=== PATIENT | female | born 1965 | race Caucasian/White ===

== ENCOUNTER 2017-07-04 04:26 | Observation (INO) | payer OTHER, SELFPAY ==
[2017-07-04] VITALS (14 sets, daily range): BP systolic 104–176; BP diastolic 67–87; PULSE 53–79; RESP 14–20; TEMP 36.2–37; O2SAT 94–100; BMI 25.0
--- NOTE | 2017-07-04 | PATH_ITS ---
[facility] Accession Number: [id number] . 01 Material submitted: . GALLBLADDER . 02 Diagnosis: Gallbladder: Cholelithiasis with associated chronic cholecystitis. MRV/07/08/2017 . 02 Electronically signed: . Juan Nance MD, Pathologist NPI- [id number] . 01 Gross description: . The specimen is received in a container of formalin, labeled with the patient's name, designated gallbladder. The specimen consists of a focally incised partially drained gallbladder measuring 6.5 x 3 x 3 cm. The gallbladder contains a small amount of pale yellow-green fluid and several 0.4-0.9 cm yellow pale green mulberry calculi. The mucosal surface is pale green, slightly irregular with possible rare faint yellow flecks scattered throughout. The wall measures less than 0.5 cm. The serosal surface is glistening pink-spicer, covered with a minimal amount of fat. The 0.7 cm segment of cystic duct is ligated. The duct is dilated and impacted with two 0.5 cm yellow-morales mulberry calculi. Director Of Clinical Trials sections submitted in cassette A1. ([id number]) . /MRV . 02 Pathologist provided ICD-10: K80.64 . 02 CPT . 306028 Performed at: 01 [facility] [address], [place], [place] [id number] MD Denzel Thompson MD Phone: [phone] Performed at: 02 [facility] [address] [place], [place] [id number] MD Stephan Gar MD Phone: [phone]
--- NOTE | 2017-07-04 04:36 | DI.US.S_ITS ---
PROCEDURE: US ABDOMEN COMPLETE INDICATIONS: severe RUQ pain TECHNIQUE: Real-time scanning was performed of the abdominal and retroperitoneal organs, with image documentation. COMPARISON: None. FINDINGS: Liver: Liver is normal in size and homogeneous in echotexture. Gallbladder: The gallbladder appears abnormal, with several approximately 8mm mobile gallstones within the gallbladder lumen the gallbladder wall is abnormally thickened measuring up to 6.4 mm. There is a small amount of adjacent pericholecystic free fluid and also mild focal tenderness during sonographic palpation exactly over the gallbladder. Biliary ducts: Intrahepatic bile ducts are non-dilated. Extrahepatic bile duct caliber measures 6.2 mm. Normal is 6-7 mm or less in diameter, or 10 mm or less post-cholecystectomy. Pancreas: Visualized portions of the pancreas are sonographically normal. Spleen: Spleen is normal in size and homogeneous in echotexture. Kidneys: Kidneys are normal in size and echotexture. Right kidney measures 9.5 cm long; left kidney measures 10.6 cm long. No hydronephrosis or nephrolithiasis. No solid masses. Aorta: Visualized aorta is normal in caliber at less than 3 cm. Iliacs: Proximal common iliac arteries are normal in caliber at less than 2.5 cm. IVC: Intrahepatic inferior vena cava is patent. Miscellaneous: No free abdominal fluid. IMPRESSION: Acute cholecystitis, intrahepatic and extrahepatic biliary distention is not found. Gallstones within the gallbladder lumen are identified of the stones visualized are mobile at this time. Dictated by: uSdarshan Dobson M.D. on 07/04/2017 at 8:17 Approved by: Sudarshan Dobson M.D. on 07/04/2017 at 8:19
--- NOTE | 2017-07-04 04:43 | ED.ABDPAIN ---
HPI - Abdominal Pain General Chief Complaint: Abdominal Pain Stated Complaint: Abdominal Pain Time Seen by Provider: 07/04/17 04:35 Source: patient and family Mode of arrival: ambulatory Limitations: no limitations History of Present Illness HPI narrative: Patient presents to the emergency department this morning with her in the chief complaint of gradually worsening epigastric and right upper quadrant pain since about 9:00 p.m.. She denies provocation, palliation or radiation. She has some associated symptoms such as nausea and decreased appetite but no vomiting, fever or chills. She denies chest pain or shortness of breath. She is not dizzy nor weak or lightheaded. She denies recent alcohol abuse. She has had a few episodes in the past similar to this but not as long. Patient's last solid food was yesterday at about 1:00 p.m. with pizza for lunch. She has been drinking clear liquids throughout the course of the night but states that has been water only, and small slips MD complaint: abdominal pain Onset (ago): hour(s) Pain Consistency: constant Location: RUQ and epigastric Severity: moderate Quality: cramping and aching Radiation: none Migration to: no migration Relieving factors: nothing Exacerbating factors: nothing Associated symptoms: nausea Related Data Previous Rx's Medication Instructions Recorded indomethacin 0 PO Q8HP PRN #30 cap 01/08/16 norethindrone ac-eth estradiol 1 tab PO Q DAY #3 pac 10/21/16 [Loestrin 1.5/30 (21)] phenazopyridine [Pyridium] 0 PO TID #9 tab 03/31/17 sulfamethoxazole-trimethoprim 0 PO BID #14 tab 03/31/17 Allergies Allergy/AdvReac Type Severity Reaction Status Date / Time No Known Drug Allergies Allergy Verified 07/04/17 04:41 PFSH Surgical History History of third molar tooth extraction Family History Father Age: 88 Heart disease Hypertension High cholesterol Grandmother Diabetes mellitus Sister Age: 50 Heart disease Social History Smoking Status: Never smoker Exam Narrative Exam Narrative: Pleasant 52-year-old female is clearly uncomfortable. Initial Vital Signs Initial Vital Signs: Vital Signs Temperature 98.2 F 07/04/17 04:37 Pulse Rate 74 07/04/17 04:37 Respiratory Rate 16 07/04/17 04:37 Blood Pressure 176/72 H 07/04/17 04:37 Pulse Oximetry 100 07/04/17 04:37 Const General: cooperative and well developed Nutritional Appearance: well nourished Orientation: alert, awake, oriented x3 and not confused [facility] Head: normocephalic and atraumatic Ears: external ears normal and TM's normal bilaterally Nose: external nose normal and No nasal discharge Face and sinus: sinuses nontender, face symmetric, no sinus tenderness and No dry mucous membranes Mouth: oral mucosae normal and moist mucous membranes Teeth and gingiva: dentition normal Throat: tonsils normal and uvula midline Eyes General: appearance normal, both eyes and all related structures Eyelids: eyelids normal Conjunctivae: conjunctivae normal Sclera: sclerae normal Pupils: PERRL EOM: EOM intact bilaterally Resp Effort & Inspection: normal respiratory effort, able to speak in complete sentences, no respiratory distress and no use of accessory muscles Auscultation: clear to auscultation bilaterally, no rales, no rhonchi and no wheezes GI Inspection: non-distended Palpation: soft, no hepatosplenomegaly, guarding, No pulsatile mass and tender (Right upper quadrant with positive Camacho sign) Auscultation: normal bowel sounds Skin General: no rashes or lesions noted, No jaundice and No petechiae Neuro General: alert, awake, oriented x3 and gait normal Speech: speech normal Extrem General: full ROM, no clubbing, cyanosis or edema, no pedal edema and no calf tenderness Course Orders Ordered: ED Orders 07/04/17 04:36 US abdomen complete Stat EKG-12 Lead Stat 07/04/17 05:45 Complete Blood Count AUTO DIFF Stat Comprehensive Metabolic Panel Stat Lipase Stat Troponin I Stat Hydromorphone HCl (Dilaudid) 1 mg SUBCUT NOW PRN PRN Reason: Pain, Severe Last Admin: 07/04/17 05:53 Dose: 1 mg Sodium Chloride (Normal Saline 0.9%) 1,000 mls @ 150 mls/hr IV CONT NINOSKA Discontinued Medications Hydromorphone HCl (Dilaudid) 0.5 mg IV NOW ONE Stop: 07/04/17 05:09 Last Admin: 07/04/17 06:22 Dose: Not Given Ondansetron HCl (Zofran) 4 mg IV NOW ONE Stop: 07/04/17 05:09 Last Admin: 07/04/17 06:22 Dose: Not Given Ondansetron HCl (Zofran Odt) 4 mg PO NOW ONE Stop: 07/04/17 05:46 Last Admin: 07/04/17 05:49 Dose: 4 mg Reevaluation(s) Reevaluation #1: patient feeling better after Dilaudid and Zofran Consultations Consultation #1: Dr. Barrera is happy to accept this patient on his service. She will go to OR after the 0900 case this morning is completed Time: 05:26 Consultation #2: Dr. Jiang (Anesthesia) consulted regarding placement of US guided peripheral line prior to OR. She is historically a very difficult IV start and both of our ED nurses were unsuccessful. He will be here at about 0715 to do preop check / HP / and place line. Time: 05:33 Vital Signs - 8 hr 07/04/17 04:37 07/04/17 06:03 Temperature 98.2 F Pulse Rate 74 63 Respiratory Rate 16 18 Blood Pressure 176/72 H Blood Pressure [Right Arm] 148/77 H Pulse Oximetry 100 100 MDM - Abdominal Pain Differential Diagnosis Differential diagnosis: Likely abdominal pain, calculus of kidney, constipation, gastroenteritis, pancreatitis and small bowel obstruction Medical Records Attestation: I reviewed the patient's medical records. Lab Data Attestation: I reviewed the patient's lab results. Result diagrams: 07/04/17 05:45 07/04/17 05:45 Lab Results 07/04/17 07/04/17 07/04/17 Range/Units 05:45 05:45 05:45 WBC 10.5 (4.5-11.0) X10^3/uL RBC 4.41 (4.0-5.2) X10^6/uL Hgb 14.0 (12.0-16.0) g/dL Hct 41.0 (36-46) % MCV 93.0 (80-100) fL MCH 31.7 (26-34) PG MCHC 34.1 (30-36) % RDW 13.0 (11.6-14.8) % Plt Count 286 (150-400) X10^3/uL Neut % (Auto) 83.3 H (50-75) % Lymph % (Auto) 13.1 L (25-40) % [place] % (Auto) 3.3 (3-14) % Eos % (Auto) 0.1 L (2-4) % Baso % (Auto) 0.2 (0-2) % Neut # (Auto) 8800 H (5755-1209) /uL Sodium 137 (137-145) mmol/L Potassium 4.1 (3.4-5.1) mmol/L Chloride 102.0 (98-107) mmol/L Carbon Dioxide 20.0 L (22-32) mmol/L BUN 10.0 (7-17) mg/dL Creatinine 0.70 (0.52-1.04) mg/dL Estimated GFR > 60.0 (>60) mL/min BUN/Creatinine Ratio 14.3 (6-22) Glucose 106 H (70-100) mg/dL Calcium 9.2 (8.4-10.2) mg/dL Total Bilirubin 0.7 (0.2-1.3) mg/dL AST 25 (14-36) IU/L ALT 28 (9-52) IU/L Alkaline Phosphatase 43 (38-126) U/L Troponin I < 0.012 (0.01-0.034) ng/mL Total Protein 7.5 (6.3-8.2) g/dL Albumin 4.3 (3.5-5.0) g/dL Globulin 3.2 (1.7-4.1) g/dL Albumin/Globulin Ratio 1.3 (1.0-2.8) Lipase 60 (23-300) U/L Imaging Data US - abdomen: Radiologist's impression: Gallstones with gallbladder wall thickening, signs consistent with acute cholecystitis ECG Data Attestation: I personally reviewed and interpreted this ECG as follows: Prior ECG tracings: not available for review Interpretation: Normal sinus rhythm at 66 beats per minutes. No ectopy. No ST segmental elevation or depression, no significant T-wave abnormalities. Discharge Plan Departure Patient Disposition: Admitted As Inpatient Clinical Impression: Acute cholecystitis
--- NOTE | 2017-07-04 05:31 | PC.NURSE ---
IV start attempted x 4 by 2 RN's with no success. US at bedside. Dr Alvarez aware. Lab phoned for draw.
[2017-07-04] MEDS: ONDANSETRON 4 MG ODT PO (05:49)
[2017-07-04] MEDS: HYDROMORPHONE 2 MG INJ 1 MG SUBCUT (05:53)
[2017-07-04 05:54] LABS: Add Manual Diff / Slide Review NO; Basophils Percent Auto 0.2 % (0-2); Eosinophils Percent Auto 0.1 % (2-4); Lymphocytes Percent Auto 13.1 % (25-40); Mean Corpuscular HGB Conc 34.1 % (30-36); Mean Corpuscular Hemoglobin 31.7 PG (26-34); Monocytes Percent Auto 3.3 % (3-14); Neutrophils Absolute Auto 8800 /uL (3000-5900); Neutrophils Percent Auto 83.3 % (50-75); Platelet Count 286 X10^3/uL (150-400); Red Blood Cell Count 4.41 X10^6/uL (4.0-5.2); White Blood Cell Count 10.5 X10^3/uL (4.5-11.0)
[2017-07-04 06:03] LABS: Alanine Aminotransferase 28 IU/L (9-52); Albumin 4.3 g/dL (3.5-5.0); Albumin Globulin Ratio 1.3 (1.0-2.8); Alkaline Phosphatase 43 U/L (38-126); Aspartate Aminotransferase 25 IU/L (14-36); BUN Creatinine Ratio 14.3 (6-22); Bilirubin Total 0.7 mg/dL (0.2-1.3); Calcium 9.2 mg/dL (8.4-10.2); Estimated Glomerular Filt Rate > 60.0 mL/min (>60); Globulin 3.2 g/dL (1.7-4.1); Glucose 106 mg/dL (70-100); HEMOLYSIS 19 (0-50); Lipase 60 U/L (23-300); Potassium 4.1 mmol/L (3.4-5.1); Sodium 137 mmol/L (137-145); Total Protein 7.5 g/dL (6.3-8.2)
[2017-07-04 06:25] LABS: Troponin I < 0.012 ng/mL (0.01-0.034)
[2017-07-04] MEDS: SODIUM CHLORIDE 0.9% 1,000 ML 150 ML IV (07:23)
--- NOTE | 2017-07-04 07:35 | PC.NURSE ---
PIV placed by anesthsia with US guidance
--- NOTE | 2017-07-04 09:06 | PM.HP.1 ---
History of Present Illness Chief complaint: Abdominal Pain Narrative: Padmini Yates is a 52 year old female The patient is a healthy 52-year-old woman. She has been having intermittent minor abdominal pain that basically would go away after about an hour. It was not accompanied by nausea or vomiting of and the patient had no obvious precipitating cause. However yesterday she developed severe upper abdominal pain right upper quadrant pain accompanied by nausea. She was seen in the emergency room and brought in for removal of an inflamed gallbladder based on the findings. She has no other GI complaints and has not been taking any medication but control regularly. Patient History Surgical History History of third molar tooth extraction Family & Social History Family History: Reviewed 07/04/17 by Bernardino Barrera MD Tobacco & Substance use: Smoking Status Never smoker alcohol intake frequency a few times a month Meds Home Medications Medication Instructions Recorded Confirmed Type norethindrone ac-eth estradiol 1 tab PO Q DAY #3 pac 10/21/16 07/04/17 Rx [Loestrin 1.5/30 (21)] Allergies Allergy/AdvReac Type Severity Reaction Status Date / Time No Known Drug Allergies Allergy Verified 07/04/17 04:41 Review of Systems Review of Systems Patient denies any double vision pain arise earache sore throat trouble swallowing. No tooth aches. No cough cold or asthma. No chest pain heart murmurs or unusual shortness of breath. Denies any black or bloody bowel movements. Had a colonoscopy that was normal recently. Is up-to-date on her mammograms. No seizures blackouts. No history kidney stones or blood in her urine. No seizures or blackouts. No psychiatric illnesses. All systems reviewed & are unremarkable except as noted in HPI and below Exam Vital Signs (past 8 hours): Vital Signs - 8 hr 07/04/17 04:37 07/04/17 06:03 07/04/17 07:35 Temperature 98.2 F Pulse Rate 74 63 53 L Respiratory Rate 16 18 17 Blood Pressure 176/72 H 136/85 H Blood Pressure [Right Arm] 148/77 H Pulse Oximetry 100 100 97 Pulse Oximetry 97 Oxygen Delivery Method Room Air Narrative Exam Narrative: Operative pleasant woman in no apparent distress. Her eyes are nonicteric. Nasal septum is midline. Ears without lesion. Oral mucosa is pink moist without open lesion. Teeth are intact. No splits or swelling of her lips. There are no nodes in the neck or supraclavicular areas. Trachea is midline and mobile. I do not appreciate any masses in the neck or thyroid. Her lungs are clear to auscultation without rales or rhonchi. Heart regular rate and rhythm no murmur gallop no bruit in the neck. She has 2+ tibialis posterior pulses. Patient is abdomen is scaphoid soft nontender there are no masses liver and spleen are not enlarged. No obvious ventral hernias. Patient normal adult hair pattern. She shaves her legs. No open lesions on the visualized skin but she does have a discolored freckle on the dorsum of her right foot (she says has been evaluated by a software reverse engineer, and has been present for many years.) She is alert and orient x3. Speech rate and content are appropriate. Objective Imaging US - abdomen: My impression: Thickened gallbladder wall with stones. Normal duct. Radiologist's impression: Acute cholecystitis with cholelithiasis Labs Result Diagrams: 07/04/17 05:45 07/04/17 05:45 Labs: Laboratory Results - last 24 hr 07/04/17 07/04/17 07/04/17 05:45 05:45 05:45 WBC 10.5 RBC 4.41 Hgb 14.0 Hct 41.0 MCV 93.0 MCH 31.7 MCHC 34.1 RDW 13.0 Plt Count 286 Neut % (Auto) 83.3 H Lymph % (Auto) 13.1 L [place] % (Auto) 3.3 Eos % (Auto) 0.1 L Baso % (Auto) 0.2 Neut # (Auto) 8800 H Sodium 137 Potassium 4.1 Chloride 102.0 Carbon Dioxide 20.0 L BUN 10.0 Creatinine 0.70 Estimated GFR > 60.0 BUN/Creatinine Ratio 14.3 Glucose 106 H Calcium 9.2 Total Bilirubin 0.7 AST 25 ALT 28 Alkaline Phosphatase 43 Troponin I < 0.012 Total Protein 7.5 Albumin 4.3 Globulin 3.2 Albumin/Globulin Ratio 1.3 Lipase 60 Assessment & Plan Plan: Plan: Healthy 52-year-old woman with acute cholecystitis with cholelithiasis based on symptoms and ultrasound. I have discussed laparoscopic cholecystectomy with possible intraoperative cholangiogram with her. Risks of bleeding, infection, injury to internal organs ducts which may require major operation, bile leakage and hernia were all discussed with her. The potential for an ERCP was discussed. She appears to understand and wishes to proceed.
--- NOTE | 2017-07-04 09:27 | PM.PREOP ---
Pre-operative Note Interval Note Pre-op Check: History & Physical exam performed today H&P completed within 30 days and has changed as indicated here:: None
[2017-07-04] MEDS: HYDROMORPHONE 2 MG INJ 1 MG IV (09:33)
[2017-07-04 10:14] LABS: Pregnancy Test Serum,Qual Negative (Negative)
--- NOTE | 2017-07-04 11:20 | PC.NURSE ---
patient picked up by usability engineer. Consent signed.
[2017-07-04] MEDS: LACTATED RINGERS 1,000 ML 42 ML IV (11:35)
[2017-07-04] MEDS: CEFAZOLIN 2 GM/100 ML FROZ.PIGGY IV (11:55)
[2017-07-04] MEDS: BUPIVACAINE 0.5% (PF) 30 ML VIAL INJ (12:53)
--- NOTE | 2017-07-05 02:40 | P.OP_ITS ---
Operative Date/Time/Diagnoses - Date of procedure: 07/04/17 Time of procedure: 13:33 Pre-op diagnosis: cholelithiasis, acute cholecystitis Post-op diagnosis: same Procedure & Clinicians Procedure: Laparoscopic cholecystectomy Same procedure as scheduled: Yes Indications: Severe upper abdominal pain with an abnormal ultrasound showing gallstones, gallbladder wall thickening and pericholecystic fluid. Surgeon: Bernardino Barrera Click Yes if Unassisted: Yes Anesthesia Type: General Operative Notes Findings: Edematous gallbladder wall with omentum adherent to the wall. Multiple stones. Normal-appearing ductal system. Closure Type: primary Implants & Drains: None Estimated Blood Loss (mL): 10 Procedure in detail: The patient was placed supine on the operating room table and underwent general endotracheal anesthesia. There prepped and draped in the usual fashion. Local anesthetic was infiltrated beneath the umbilicus and an incision made in the infraumbilical fold. It was carried down to the level of the peritoneum which was opened under direct vision. Stay sutures of 0 Polysorb were placed in the fascia. An Childs cannula was inserted and the abdomen was insufflated. The patient was repositioned and local anesthetic was infiltrated again beneath the right costal margin and 3 small 5 mm ports were inserted. The gallbladder was identified and grasped and elevated. It was encased in omentum. This was quite edematous. The omentum was taken down with blunt dissection and cautery. The end of the gallbladder was identified. Dissection was begun here. The tissues were somewhat thickened and so anything that appeared that it might be vascular had clips were placed across the before was divided. A ductal structure that was singular nature was isolated from surrounding structures. It was normal in caliber. Clips were placed across it was divided leaving 2 in the patient. There was a large artery visible were sending a branch to the gallbladder. I carefully preserved the large branch that appeared to be going to the liver and placed 3 clips across the branch going to the gallbladder and divided it leaving 2 in the patient. The gone over was then dissected from its bed in the liver. It was ultimately detached and placed in a bag and removed without difficulty through the umbilical port. The right upper quadrant was irrigated and suctioned free of fluid. Meticulous hemostasis was achieved. The ports were all removed. The wounds were irrigated with saline. The stay sutures at the umbilicus were tied. A 2 0 Maxon suture was placed between the two stay sutures of 0 Polysorb was which had been tied. The wounds were all closed with 4 0 Polysorb subcuticular sutures and Steri- Strips. Band-aids were applied and the patient was awakened extubated and taken to recovery area in good condition. Complications: none Condition: stable Disposition: PACU Plan for aftercare: Probable discharge later today and follow up in the office
== END 2017-07-04 18:15 | disposition home or self-care (01) ==
LOC: ED 06:29 → AC 14:10
PROVIDERS: Admitting Provider Specialist; Emergency Provider Emergency Medicine; Family Provider Internal Medicine; PCP Internal Medicine; Visit Provider Specialist
PROC: 0FT44ZZ Resection of Gallbladder, Percutaneous Endoscopic Approach (ICD-10-PCS; CPT 47562; principal; 2017-07-04 11:00)
DX: K80.10 Calculus of gallbladder with chronic cholecystitis without obstruction (principal)
CPT/HCPCS: 47562; 36415; 76700; 80053; 83690; 84484; 84703; 85025; 93005; 96361; 96372; 96374; 96375; 99283; 99285; G0378; J0131; J0690; J1100; J1170; J1885; J2250; J2405; J2704; J3010

== ENCOUNTER → 2017-07-27 16:16 | Outpatient (CLI) | payer OTHER, SELFPAY ==
[2017-07-04 08:48] VITALS: BMI 25.0
--- NOTE | 2017-07-27 16:18 | DI.US.S_ITS ---
ULTRASOUND OF LEFT BREAST: 07/27/2017 CLINICAL: 6 month follow-up of cysts. Comparison is made to exams dated: 01/06/2017 ultrasound, 10/06/2016 ultrasound, 10/06/2016 mammogram, and 09/30/2016 mammogram - [facility]. Color flow and real-time ultrasound of the left breast were performed on the areas of interest. There is a stable 0.5 cm x 0.5 cm x 0.5 cm round complex cyst in the left breast at 4 o'clock middle depth. This round complex cyst is hypoechoic with internal echoes. Color flow imaging demonstrates that there is no vascularity present. IMPRESSION: PROBABLY BENIGN - FOLLOW-UP RECOMMENDED The stable 0.5 cm x 0.5 cm x 0.5 cm round complex cyst in the left breast likely represents a complex cyst and is probably benign. A follow-up ultrasound in 12 months is recommended to demonstrate 2 year stability. This exam was interpreted at Station ID: [id number]. Electronically Signed By: Denzel hou/:07/27/2017 17:13:13 letter sent: Followup Recommended Ultrasound BI-RADS: 3 Probably benign
== END ==
PROVIDERS: Family Provider Internal Medicine; PCP Internal Medicine
DX: R92.8 Other abnormal and inconclusive findings on diagnostic imaging of breast (principal); N60.02 Solitary cyst of left breast
CPT/HCPCS: 76642

== ENCOUNTER → 2017-10-07 15:22 | Outpatient (CLI) | payer OTHER, SELFPAY ==
[2017-07-04 08:48] VITALS: BMI 25.0
--- NOTE | 2017-10-07 15:24 | DI.MG.S_ITS ---
BILATERAL DIGITAL SCREENING MAMMOGRAM 3D/2D WITH CAD: 10/07/2017 Comparison is made to exams dated: 10/06/2016 mammogram, 09/30/2016 mammogram, and 03/15/2015 mammogram - [facility]. There are scattered fibroglandular elements in both breasts. Current study was also evaluated with a Computer Aided Detection (CAD) system. There is a focal asymmetry in the left breast at 4 o'clock middle depth. No other significant masses, calcifications, or other findings are seen in either breast. IMPRESSION: INCOMPLETE: NEEDS ADDITIONAL IMAGING EVALUATION The focal asymmetry in the left breast is indeterminate. Additional views with possible ultrasound are recommended. This exam was interpreted at Station ID: [id number]. NOTE: For mammograms, a report in lay terms will be sent to the patient. Approximately 15% of breast malignancies will not be visualized mammographically. In the management of a palpable breast mass, a negative mammogram must not discourage biopsy of a clinically suspicious lesion. Electronically Signed By: Carmelo gallegos/dylon:10/08/2017 12:39:45 copy to: Evelyn Clark letter sent: Additional Imaging Needed ACR BI-RADS Category 0: Incomplete [id number]
== END ==
PROVIDERS: Family Provider Internal Medicine; PCP Internal Medicine
DX: Z12.31 Encounter for screening mammogram for malignant neoplasm of breast (principal)
CPT/HCPCS: 77063; 77067

== ENCOUNTER → 2017-11-02 13:25 | Outpatient (CLI) | payer OTHER, SELFPAY ==
[2017-07-04 08:48] VITALS: BMI 25.0
--- NOTE | 2017-11-02 13:26 | DI.MG.S_ITS ---
UNILATERAL LEFT DIGITAL DIAGNOSTIC MAMMOGRAM 3D/2D WITH ADDITIONAL VIEWS: 11/02/2017 CLINICAL: Additional evaluation requested from prior study. Comparison is made to exams dated: 10/07/2017 mammogram, 10/06/2016 mammogram, 09/30/2016 mammogram, and 03/15/2015 mammogram - [facility]. There are scattered fibroglandular elements in left breast. Previously identified focal asymmetry in the left breast at 4 o'clock middle depth of comparison screening mammograms persists with additional views. This is similar in appearance to comparison mammogram of 10/06/2016. No other significant masses, calcifications, or other findings are seen in the breast. IMPRESSION: INCOMPLETE: NEEDS ADDITIONAL IMAGING EVALUATION Previously identified focal asymmetry in the left breast at 4 o'clock middle depth of comparison screening mammograms persists with additional views, and is similar in appearance to comparison mammogram of 10/06/2016. A targeted ultrasound is recommended for further evaluation, and will be performed immediately following this exam. This exam was interpreted at Station ID: [id number]. NOTE: For mammograms, a report in lay terms will be sent to the patient. Approximately 15% of breast malignancies will not be visualized mammographically. In the management of a palpable breast mass, a negative mammogram must not discourage biopsy of a clinically suspicious lesion. Electronically Signed By: Gordo Renner M.D. ecl/:11/02/2017 16:23:29 copy to: Evelyn Clark letter sent: Additional Imaging Needed ACR BI-RADS Category 0: Incomplete [id number]
--- NOTE | 2017-11-02 13:26 | DI.US.S_ITS ---
LIMITED ULTRASOUND OF LEFT BREAST: 11/02/2017 CLINICAL: Patient returns today to evaluate a density in the left breast. Comparison is made to exams dated: 11/02/2017 mammogram, 10/07/2017 mammogram, 07/27/2017 ultrasound, 01/06/2017 ultrasound, 10/06/2016 ultrasound, and 10/06/2016 mammogram - [facility]. Real-time and Doppler ultrasound of the left breast 3-4 o'clock region were performed. Avila scale images of the real-time examination were reviewed. There is a 0.5 cm x 0.4 cm x 0.4 cm oval cyst with a smooth internal wall in the left breast at 3:30 o'clock middle depth 4 cm from the nipple. This oval cyst is anechoic with posterior acoustic enhancement. This correlates with mammography findings. Color flow imaging demonstrates that there is no vascularity present. This cyst is stable in appearance to multiple prior ultrasound exams and is unchanged in size from 10/06/2016 where it measured 0.5 cm x 0.4 cm x 0.4 cm. IMPRESSION: PROBABLY BENIGN The 0.5 cm x 0.4 cm x 0.4 cm oval cyst in the left breast at 3:30 position 4 cm from the nipple is probably benign. This represents at least 1 year of stability. A follow-up ultrasound in 6 months is recommended to demonstrate continued stability. This exam was interpreted at Station ID: [id number]. Electronically Signed By: Gordo Renner M.D. ecl/:11/02/2017 19:27:55 copy to: Evelyn Clark letter sent: Followup Recommended Ultrasound BI-RADS: 3 Probably benign
== END ==
PROVIDERS: PCP Internal Medicine
DX: R92.8 Other abnormal and inconclusive findings on diagnostic imaging of breast (principal); N60.02 Solitary cyst of left breast
CPT/HCPCS: 76642; 77065; G0279

== ENCOUNTER → 2018-10-17 12:53 | Outpatient (CLI) | payer OTHER, SELFPAY ==
[2017-07-04 08:48] VITALS: BMI 25.0
--- NOTE | 2018-10-17 12:54 | DI.MG.S_ITS ---
BILATERAL DIGITAL DIAGNOSTIC MAMMOGRAM 3D/2D: 10/17/2018 CLINICAL: Late short term follow up, due bilateral. Comparison is made to exams dated: 11/02/2017 mammogram, 10/07/2017 mammogram, 10/06/2016 mammogram, 09/30/2016 mammogram, and 03/15/2015 mammogram - [facility]. There are scattered fibroglandular elements in both breasts. There is a persistent equal density focal asymmetry in the left breast at 4 o'clock middle depth. This is not significantly changed since 2017 mammograms. No other significant masses, calcifications, or other findings are seen in either breast. IMPRESSION: INCOMPLETE: NEEDS ADDITIONAL IMAGING EVALUATION The stable equal density focal asymmetry in the left breast but remains indeterminate. An ultrasound is recommended for further evaluation and is scheduled to immediately follow this examination. This exam was interpreted at Station ID: [id number]. NOTE: For mammograms, a report in lay terms will be sent to the patient. Approximately 15% of breast malignancies will not be visualized mammographically. In the management of a palpable breast mass, a negative mammogram must not discourage biopsy of a clinically suspicious lesion. Electronically Signed By: Wiliam Mcknight M.D. aty/:10/17/2018 14:54:43 ACR BI-RADS Category 0: Incomplete 3340F
--- NOTE | 2018-10-17 12:54 | DI.US.S_ITS ---
ULTRASOUND OF LEFT BREAST: 10/17/2018 CLINICAL: 6 month follow-up of cyst left breast. Comparison is made to exams dated: 10/17/2018 mammogram, 11/02/2017 ultrasound, 10/07/2017 mammogram, 07/27/2017 ultrasound, 01/06/2017 ultrasound, and 10/06/2016 ultrasound - [facility]. Color flow and real-time ultrasound of the left breast were performed. Avila scale images of the real-time examination were reviewed. There is a persistent 0.5 cm x 0.4 cm x 0.4 cm oval cyst with a smooth internal wall in the left breast at 3:30 o'clock middle depth 4 cm from the nipple. This oval cyst is anechoic with posterior acoustic enhancement. This abnormality is not significantly changed since September 2016 exam, and correlates with mammography findings. Color flow imaging demonstrates that there is no vascularity present. IMPRESSION: BENIGN There is no sonographic evidence of malignancy. The 0.5 cm x 0.4 cm x 0.4 cm oval cyst in the left breast has remained stable for 2 years time and is consistent with a benign complicated cyst. Return to annual mammogram screening schedule is recommended. This exam was interpreted at Station ID: [id number]. Electronically Signed By: Wiliam Mcknight M.D. at/:10/17/2018 14:58:25 letter sent: Normal Exam Ultrasound BI-RADS: 2 Benign
== END ==
PROVIDERS: PCP Internal Medicine
DX: R92.8 Other abnormal and inconclusive findings on diagnostic imaging of breast (principal); N60.02 Solitary cyst of left breast
CPT/HCPCS: 76642; 77066; G0279

== ENCOUNTER → 2019-03-03 15:40 | Outpatient (CLI) | payer OTHER, SELFPAY ==
[2017-07-04 08:48] VITALS: BMI 25.0
== END ==
PROVIDERS: PCP Internal Medicine
DX: Z78.0 Asymptomatic menopausal state (principal)
CPT/HCPCS: 36415; 83001

== ENCOUNTER → 2020-06-05 17:09 | Outpatient (CLI) | payer OTHER, SELFPAY ==
[2017-07-04 08:48] VITALS: BMI 25.0
[2020-06-05 17:58] LABS: HEMOLYSIS 26 (0-50); Potassium 4.1 mmol/L (3.4-5.1)
== END ==
PROVIDERS: PCP Internal Medicine; Referring Provider Internal Medicine; Visit Provider Internal Medicine
DX: R00.2 Palpitations (principal)
CPT/HCPCS: 36415; 83735; 84132

== ENCOUNTER → 2020-06-27 08:08 | Outpatient (CLI) | payer BC, SELFPAY ==
[2017-07-04 08:48] VITALS: BMI 25.0
--- NOTE | 2020-06-27 | DI.ECHO.S_ITS ---
[place] [facility]---------+ [facility] +---------+ : : [address] : : : : [id number] : : : : Phone: [phone]---------+ Echocardiogram Report + + :Name: YOLETTE CONTI Study Date: 06/27/2020 Height: 67 in : :[facility] ReadingLocation: Weight: 155 lb : : Gender: Female BSA: 1.8 m2 : :: 1965 Age: 55 yrs BP: 110/64 mmHg: :Reason For Study: ABNORMALITIES OF HEART RHYTHM : :Ordering Physician: MAURI, : :RUSSEL Performed By: Ailyn Vazquez : :Referring: RUSSEL DOTSON : + + Interpretation Summary 1) Normal left ventricular size, thickness, and systolic function (EF 55-60%). 2) There are no obvious focal wall motion abnormalities noted but poor endocardial definition reduces the sensitivity for the detection of such. 3) Normal right ventricular size and function. 4) No significant valvular abnormalities. 5) No prior Echo available for comparison. Procedure: A two-dimensional transthoracic echocardiogram with color flow and Doppler was performed. The study quality was technically adequate. There is no prior echocardiogram noted for this patient. The patient was in sinus rhythm with heart rates between 63-78 bpm during the exam. Left Ventricle: The left ventricle is normal in size and wall thickness. The ejection fraction is estimated to be 55-60%. Left ventricular systolic function is normal. There are no obvious focal wall motion abnormalities noted but poor endocardial definition reduces the sensitivity for the detection of such. Diastolic parameters suggest probable normal left ventricular diastolic function and normal filling pressures. Right Ventricle: The right ventricle is normal in size and function. Atria: The left atrium is moderately dilated. Right atrial size is normal. The interatiral septum is thin and hypermobile. There is no Doppler evidence for an interatrial shunt. Mitral Valve: The mitral valve is normal in structure and function. There is trace mitral regurgitation. Aortic Valve: The aortic valve is trileaflet. The aortic valve opens well. There is no aortic valve stenosis. No aortic regurgitation is present. Tricuspid Valve: The tricuspid valve is normal in structure and function. No tricuspid regurgitation. Pulmonary artery pressures cannot be estimated because of the lack of a measurable TR jet velocity but the IVC suggests a CVP of around 3 mmHg. Pulmonic Valve: The pulmonic valve is not well visualized. There is trace pulmonic regurgitation. Great Vessels: The aortic root is normal size. The dimensions of the ascending aorta are normal. The IVC is of normal diameter and collapses greater than 50% with a sniff. This suggests a low right atrial pressure of 3 mm Hg. Pericardium/ Pleura There is no pericardial effusion. There is no pleural effusion. MMode/2D Measurements & Calculations LVIDd: 4.3 cm LVOT diam: 2.1 cm LVIDs: 3.2 cm Ao root diam: 3.2 cm FS: 27.0 % asc Aorta Diam: 3.0 cm EPSS: 0.83 cm Ao Arch Diam (Prox Trans): 2.6 cm IVSd: 0.66 cm LVPWd: 0.75 cm LV ibarra. diameter/BSA (cm/m^2): 2.4 LV sys. diameter/BSA (cm/m^2): 1.7 LA A2 area: 21.4 cm2 RA long axis: 4.5 cm LA A4 area: 17.0 cm2 RA area: 10.9 cm2 LA length (vol): 4.7 cm RA vol: 22.3 ml LA vol: 65.2 ml RA : 12.3 ml/m2 LA vol index: 35.9 ml/m2 IVC diam: 1.3 cm RVD1 (basal): 2.7 cm TAPSE: 1.7 cm Doppler Measurements & Calculations Ao V2 max: 86.3 cm/sec LVOT Max Keo: 66.7 cm/sec Ao V2 mean: 62.0 cm/sec LV V1 max P.8 mmHg Ao max P.0 mmHg LV V1 VTI: 14.0 cm Ao mean P.7 mmHg ROBYN(I,D): 2.6 cm2 Ao V2 VTI: 19.1 cm ROBYN(V,D): 2.7 cm2 sev ratio: 0.73 ROBYN indexed to BSA (cm^2/m^2): 1.4 MV E max keo: 55.4 cm/sec PA pr(Accel): 22.5 mmHg MV A max keo: 57.6 cm/sec MV E/A: 0.96 Med Peak E' Keo: 6.2 cm/sec E/E' med: 9.0 Lat Peak E' Keo: 8.0 cm/sec E/E' lat: 6.9 E/e' average: 8.0 MV dec time: 0.19 sec SV(LVOT): 49.5 ml Reading Physician:11:13 AM
== END ==
PROVIDERS: PCP Internal Medicine; Referring Provider Internal Medicine Cardiovascular Disease; Visit Provider Internal Medicine
DX: R00.8 Other abnormalities of heart beat (principal); R00.2 Palpitations
CPT/HCPCS: 93306

== ENCOUNTER → 2020-10-16 17:30 | Outpatient (CLI) | payer BC, SELFPAY ==
[2017-07-04 08:48] VITALS: BMI 25.0
--- NOTE | 2020-10-16 17:31 | DI.MG.S_ITS ---
BILATERAL DIGITAL SCREENING MAMMOGRAM 3D/2D WITH CAD: 10/16/2020 CLINICAL: Routine screening. Comparison is made to exams dated: 10/17/2018 ultrasound, 10/17/2018 mammogram, 11/02/2017 mammogram, and 10/07/2017 mammogram - [facility]. There are scattered fibroglandular elements in both breasts. Current study was also evaluated with a Computer Aided Detection (CAD) system. No significant masses, calcifications, or other findings are seen in either breast. There has been no significant interval change. IMPRESSION: NEGATIVE There is no mammographic evidence of malignancy. A 1 year screening mammogram is recommended. This exam was interpreted at Station ID: [id number]. NOTE: For mammograms, a report in lay terms will be sent to the patient. Approximately 15% of breast malignancies will not be visualized mammographically. In the management of a palpable breast mass, a negative mammogram must not discourage biopsy of a clinically suspicious lesion. Electronically Signed By: Denzel hou/dylon:10/17/2020 08:01:16 letter sent: Normal Exam ACR BI-RADS Category 1: Negative 3341F
== END ==
PROVIDERS: PCP Internal Medicine; Referring Provider Internal Medicine; Visit Provider Internal Medicine
DX: Z12.31 Encounter for screening mammogram for malignant neoplasm of breast (principal)
CPT/HCPCS: 77063; 77067

== ENCOUNTER → 2021-02-26 09:19 | Outpatient (CLI) | payer BC, SELFPAY ==
[2021-02-24 15:19] VITALS: BMI 25.0
[2021-02-26 11:18] LABS: COVID19 -Nasal RAPID Negative (Negative)
== END ==
PROVIDERS: PCP Internal Medicine; Referring Provider Family Medicine Sleep Medicine; Visit Provider Family Medicine Sleep Medicine
DX: Z20.822 Contact with and (suspected) exposure to COVID-19 (principal)
CPT/HCPCS: 87635; C9803

== ENCOUNTER → 2021-06-30 16:23 | Outpatient (ROUT) | payer BC, SELFPAY ==
[2021-02-24 15:19] VITALS: BMI 25.0
[2021-06-30 16:28] LABS: Appearance Urine UA CLEAR; Bilirubin Urine UA NEGATIVE (NEGATIVE); Color Urine UA YELLOW; Glucose Urine UA NEGATIVE (Negative); Ketones Urine UA NEGATIVE (NEGATIVE); Leukocyte Esterase Urine UA NEGATIVE (NEGATIVE); Nitrite Urine UA NEGATIVE (Negative); Occult Blood Urine UA 2+ (Negative); Protein Urine UA NEGATIVE (Negative); Urobilinogen Urine UA 0.2 E.U./dL (0.2)
[2021-06-30 16:40] LABS: Bacteria Urine Occasional (0-1); Culture Indicated Urine Cult Not Indicated; RBC Urine 1-5/HPF (0-5/HPF); Squamous Epithelial Cell Urine 0-1 /HPF (0-5/HPF); WBC Urine 0-1/HPF (0-5/HPF); pH Urine UA 5.5 (4.5-8.0)
== END ==
PROVIDERS: PCP Internal Medicine; Visit Provider Internal Medicine
DX: R31.21 Asymptomatic microscopic hematuria (principal)
CPT/HCPCS: 81001; 87086

== ENCOUNTER → 2021-09-29 15:48 | Outpatient (CLI) | payer BC, SELFPAY ==
[2021-02-24 15:19] VITALS: BMI 25.0
--- NOTE | 2021-09-29 15:50 | DI.CT.S_ITS ---
PROCEDURE: CT ABDOMEN PELVIS WO/W CON INDICATIONS: Asymptomatic microscopic hematuria TECHNIQUE: Optional 5 mm thick noncontrast images acquired from the diaphragm to the symphysis pubis. After the administration of intravenous contrast, 5 mm thick images acquired from the diaphragm to the symphysis pubis after a 10-minute delay. 2 mm thick coronal and sagittal reformats were then performed of the kidneys and ureters. For radiation dose reduction, the following was used: automated exposure control, adjustment of mA and/or kV according to patient size. COMPARISON: None. FINDINGS: Image quality: Excellent. Lung bases: Lung bases are clear. Heart size is normal. Urinary system: Both kidneys are normal in size, without hydronephrosis or nephrolithiasis on pre-contrast images. No perinephric fat stranding. There is normal bilateral renal enhancement. Renal calyces appear normal in morphology when filled with contrast. Opacified portions of both ureters demonstrate normal caliber. Bladder wall thickness is normal. No calcified bladder stones. Other solid organs: Liver is normal in size and enhancement. Gallbladder is surgically absent . Biliary system is non dilated. Pancreas enhances normally. Spleen is normal in size and enhancement. No adrenal nodules. Peritoneum and bowel: Bowel loops demonstrate normal wall thickness and caliber. The appendix is thin walled. No free fluid or air. Nodes and vessels: There is mild fat stranding at the mesenteric root. No retroperitoneal or mesenteric adenopathy by size criteria. Aorta and inferior vena cava are normal in size. Abdominal wall: No ventral hernias. Pelvis: No pathologic free pelvic fluid. No inguinal hernias or adenopathy. Bones: No suspicious bony lesions. No vertebral body compression fractures. IMPRESSION: 1. No hydronephrosis, nephrolithiasis, hydroureter, or ureterolithiasis. No suspicious enhancing renal mass lesions. No renal collecting system filling defects. No bladder stones or mass lesions. 2. No acute intra-abdominal findings. Normal appendix. Dictated by: Rosario Stewart M.D. on 09/29/2021 at 16:53 Approved by: Rosario Stewart M.D. on 09/29/2021 at 16:56
== END ==
PROVIDERS: PCP Internal Medicine; Referring Provider Urology; Visit Provider Urology
DX: R31.21 Asymptomatic microscopic hematuria (principal)
CPT/HCPCS: 74178

== ENCOUNTER → 2022-11-03 09:03 | Outpatient (CLI) | payer BC, SELFPAY ==
[2021-02-24 15:19] VITALS: BMI 25.0
--- NOTE | 2022-11-03 09:05 | DI.RAD.S_ITS ---
PROCEDURE: XR FOREARM LT 2V INDICATIONS: fall/twist 2 days ago w/jammed hiking pole TECHNIQUE: 2 views of the forearm were acquired. COMPARISON: None. FINDINGS: Bones: No fractures or dislocations. No suspicious bony lesions. Soft tissues: No suspicious soft tissue calcifications or masses. IMPRESSION: No acute forearm fracture or dislocation. No gross soft tissue abnormalities. Dictated by: Burt Schneider M.D. on 11/03/2022 at 16:07 Approved by: Burt Schneider M.D. on 11/03/2022 at 16:07
--- NOTE | 2022-11-03 09:05 | DI.RAD.S_ITS ---
PROCEDURE: XR ELBOW LT MIN 3V INDICATIONS: fall/twist 2 days ago w/jammed hiking pole TECHNIQUE: 3 views of the elbow were acquired. COMPARISON: None. FINDINGS: Bones: There is an acute fracture involving anterior and lateral aspect of radial head and neck with fracture line extending to its articulating space with capitellum. No other fracture or dislocation is seen. No suspicious bony lesions. Soft tissues: Moderate joint effusion is noted with displacement of anterior fat pad.. No suspicious soft tissue calcifications. IMPRESSION: Acute minimally displaced intra-articular fracture of left radial head and neck as above. Dictated by: Burt Schneider M.D. on 11/03/2022 at 16:07 Approved by: Burt Schneider M.D. on 11/03/2022 at 16:08
== END ==
PROVIDERS: PCP Internal Medicine; Referring Provider Physician Assistant; Visit Provider Physician Assistant
DX: S52.125A Nondisplaced fracture of head of left radius, initial encounter for closed fracture (principal); S52.135A Nondisplaced fracture of neck of left radius, initial encounter for closed fracture; S49.92XA Unspecified injury of left shoulder and upper arm, initial encounter; W19.XXXA Unspecified fall, initial encounter; M25.422 Effusion, left elbow
CPT/HCPCS: 73080; 73090

== ENCOUNTER → 2022-11-06 19:45 | Outpatient (CLI) | payer BC, SELFPAY ==
[2021-02-24 15:19] VITALS: BMI 25.0
--- NOTE | 2022-11-06 | DI.MRI.S_ITS ---
PROCEDURE: MR ELBOW LT W CON INDICATIONS: Displaced fracture of head of left radius- TECHNIQUE: Noncontrast coronal proton density fast spin echo and T2 fast spin echo with fat saturation, axial and sagittal T1 spin echo and T2 fast spin echo with fat saturation through the elbow. COMPARISON: [facility], CR, XR ELBOW LT MIN 3V, 11/03/2022, 9:22. FINDINGS: Image quality: Excellent. Lateral structures: The lateral ulnar collateral ligament and radial collateral ligament both appear intact. The overlying common extensor tendon also appears normal. Medial structures: There is moderate grade partial-thickness tear involving ulnar collateral ligament near its medial epicondylar insertion. The overlying common flexor tendon appears thickened at its medial epicondylar insertion with intrasubstance T2 hyperintense signal extending to musculotendinous junction of flexor digitorum superficialis muscle. The ulnar nerve appears normal in size and signal within the cubital tunnel. Anterior structures: The biceps and brachialis tendons both appear intact as they insert onto the proximal radius and ulna, respectively. No bicipitoradial bursal fluid. The median and radial neurovascular bundles appear normal; no focal muscle atrophy to suggest nerve impingement. Posterior structures: The conjoint triceps tendon from the long and lateral heads appears intact. The medial head of the triceps tendon also appears normal, with direct muscle insertion onto the olecranon. No olecranon bursal fluid. Bone and cartilage: Marrow edema involving proximal radial shaft and radial neck is seen with subtle impacted fracture involving radial neck anterior cortex. Bony contusion involving adjacent capitellum is seen without discrete fracture line. There is moderate joint effusion, no gross loose bodies. No osteochondral injuries. IMPRESSION: 1. Slightly impacted radial neck fracture with proximal radial head and neck marrow edema. Contusion involving adjacent capitellum. No other area of abnormal marrow signal. Moderate joint effusion, no intra-articular loose bodies. 2. Moderate grade partial-thickness tear involving ulnar collateral ligament near its medial epicondylar insertion. Tendinosis and low-grade partial-thickness tear involving common flexor tendon origin extending to musculotendinous junction of flexor digitorum superficialis muscle. 3. Rest of the elbow tendons and ligaments are intact. Dictated by: Burt Schneider M.D. on 11/09/2022 at 9:34 Approved by: Burt Schneider M.D. on 11/09/2022 at 9:43
== END ==
PROVIDERS: PCP Internal Medicine; Referring Provider Orthopaedic Surgery Orthopaedic Surgery of the Spine; Visit Provider Orthopaedic Surgery Orthopaedic Surgery of the Spine
DX: S52.122A Displaced fracture of head of left radius, initial encounter for closed fracture (principal); S53.442A Ulnar collateral ligament sprain of left elbow, initial encounter; S56.212A Strain of other flexor muscle, fascia and tendon at forearm level, left arm, initial encounter; M25.422 Effusion, left elbow
CPT/HCPCS: 73221

== ENCOUNTER → 2022-12-29 16:23 | Outpatient (CLI) | payer BC, SELFPAY ==
[2021-02-24 15:19] VITALS: BMI 25.0
--- NOTE | 2022-12-29 | DI.MG.S_ITS ---
BILATERAL DIGITAL SCREENING MAMMOGRAM 3D/2D WITH CAD: 12/29/2022 CLINICAL: Routine screening. Comparison is made to exams dated: 10/16/2020 mammogram, 10/17/2018 mammogram, 11/02/2017 mammogram, and 10/07/2017 mammogram - [facility]. There are scattered areas of fibroglandular density in both breasts (category b / 25%-50% glandular tissue). Current study was also evaluated with a Computer Aided Detection (CAD) system. No significant masses, calcifications, or other findings are seen in either breast. There has been no significant interval change. IMPRESSION: NEGATIVE There is no mammographic evidence of malignancy. A 1 year screening mammogram is recommended. Based on the Tyrer Cuzick model (a risk assessment model) the patient's lifetime risk is 9.5% and her 10 year risk is 3.3%. According to the ACR, ACS, and NCCN guidelines, an annual breast MRI exam along with mammogram is recommended if the patient's lifetime risk is 20% or greater. This exam was interpreted at Station ID: [id number]. NOTE: For mammograms, a report in lay terms will be sent to the patient. Approximately 15% of breast malignancies will not be visualized mammographically. In the management of a palpable breast mass, a negative mammogram must not discourage biopsy of a clinically suspicious lesion. Electronically Signed By: Ashwin gregory/dylon:12/30/2022 09:34:49 letter sent: Normal Exam ACR BI-RADS Category 1: Negative 3341F
== END ==
PROVIDERS: PCP Internal Medicine; Referring Provider Internal Medicine; Visit Provider Internal Medicine
DX: Z12.31 Encounter for screening mammogram for malignant neoplasm of breast (principal)
CPT/HCPCS: 77063; 77067

== ENCOUNTER → 2024-08-14 15:20 | Outpatient (CLI) | payer OTHER, SELFPAY ==
[2021-02-24 15:19] VITALS: BMI 25.0
--- NOTE | 2024-08-14 15:23 | DI.RAD.S_ITS ---
PROCEDURE: XR DEXA AXIAL SKELETON INDICATIONS: SCREENING FOR OSTEOPOROSIS COMPARISON: None. FINDINGS: Lumbar Spine: Bone mineral density 0.968 g/cm2, T score -0.7. Left Femoral Neck: Bone mineral density 0.639 g/cm2, T score -1.9. Left Hip: Bone mineral density 0.797 g/cm2, T score -1.2. Fracture Risk Calculation (when applicable): 10-year fracture risk of a major osteoporotic fracture 8.9 percent and of a hip fracture 1.0 percent. (T score greater or equal to -1.0 to: NORMAL) (T score from -1.1 to -2.4: OSTEOPENIA) (T score less than or equal to -2.5: OSTEOPOROSIS) IMPRESSION: Osteopenia--- recommend repeat DEXA in 2-3 years for reassessment. Follow-up guidelines as follows: Osteoporosis: Consider a repeat DEXA and Vertebral Fracture Assessment (VFA) exam in 2 years or sooner if medically necessary, to reassess this patient's status. Osteopenia: Consider a repeat DEXA in 2-3 years to reassess this patient's status, or if there is a new clinical indication. Normal: Consider a repeat DEXA in 5 years or sooner, or if there is a new clinical indication. All treatment decisions require clinical judgment and consideration of individual patient factors, including patient preferences, comorbidities, previous drug use, risk factors not captured in the FRAX model (e.g., frailty, falls, vitamin D deficiency, increased bone turnover, interval significant decline in bone density ) and possible under- or over-estimation of fracture risk by FRAX. In addition, the NOF Guide recommends that FDA-approved medical therapies be considered in postmenopausal women and men age >= 50 years with a: * Hip or vertebral (clinical or morphometric) fracture * T-score of <=-2.5 at the spine or hip * Ten-year fracture probability by FRAX of >= 3% for hip fracture or >=20% for major osteoporotic fracture. Dictated by: Jayson Bettencourt M.D. on 08/15/2024 at 19:02 Approved by: Jayson Bettencourt M.D. on 08/15/2024 at 19:05
--- NOTE | 2024-08-14 15:24 | DI.MG.S_ITS ---
MM screening mammo BI: 08/14/2024. BI-RADS: 1 CLINICAL: 59-year old female for bilateral screening mammogram. Tyrer-Cuzick lifetime risk of 7.9%. No personal or first-degree family history of breast cancer. PRIOR EXAMS 12/29/2022, 10/16/2020, 10/17/2018, MAMMOGRAPHY TECHNIQUE: 2D and 3D (tomosynthesis) digital mammographic views obtained, with additional images as needed for full coverage. Current study was also evaluated with a Computer Aided Detection (CAD) system. DENSITY B. There are scattered areas of fibroglandular density. MAMMOGRAPHY FINDINGS Bilateral: No suspicious mass, asymmetry, microcalcification, or other abnormality seen. IMPRESSION: * No evidence of malignancy. RECOMMENDATIONS Bilateral * Annual screening mammography. OVERALL ASSESSMENT CATEGORY BI-RADS-1: Negative. The [employer] recommends annual screening mammography beginning at age 40 for women with average risk of breast cancer. ELECTRONICALLY SIGNED: Dana Mendez M.D. on 08/16/2024 at 06:32:26 AM PT Interpreting Station ID: [id number]
== END ==
PROVIDERS: PCP Internal Medicine; Referring Provider Internal Medicine; Visit Provider Registered Nurse
DX: Z12.31 Encounter for screening mammogram for malignant neoplasm of breast (principal); Z13.820 Encounter for screening for osteoporosis; M85.89 Other specified disorders of bone density and structure, multiple sites; Z78.0 Asymptomatic menopausal state; Z87.310 Personal history of (healed) osteoporosis fracture
CPT/HCPCS: 77063; 77067; 77080